=== PATIENT | female | born 1995 | race Caucasian/White ===

== ENCOUNTER 2017-01-30 19:28 | Emergency (ER) | payer BC, OTHER ==
[2017-01-30 19:46] VITALS: O2SAT 98
--- NOTE | 2017-01-30 19:57 | RAD ---
EXAM: Three view(s) of the left foot. INDICATION: Pain. COMPARISON: None. FINDINGS: There is a mildly displaced fracture involving the base of the fifth metatarsal. No other fracture is identified. IMPRESSION: Mildly displaced fracture involving the base of the fifth metatarsal. Electronically signed by: Lonnie Samuels MD 01/30/2017 7:56 PM CDT
--- NOTE | 2017-01-30 20:37 | ED.PDOC ---
History of Present Illness - General Chief Complaint: Lower Extremity Injury Stated Complaint: left ankle pain Time Seen by Provider: 01/30/17 19:31 Source: patient Exam Limitations: no limitations - History of Present Illness Initial Comments: the patient is a 22-year-old female presenting to the emergency room secondary to falling and twisting her left foot. She has significant swelling and pain over the lateral mid aspect of the left foot. She is neurovascularly preserved. Tendon function appears to be preserved. No other injuries. Occurred: this evening Pain - Lower Extremity: moderate: Left Foot Method of Injury: fell, twisted Improving Factors: immobilization Worsening Factors: movement Allergies/Adverse Reactions: Allergies NO KNOWN ALLERGY Allergy (Verified 01/30/17 19:46) Home Medications: Ambulatory Orders Iienkfifmhcdy-Aomg-Twmrfyoyzf [Fioricet] 1 ea PO Q8H PRN #21 tab 01/30/17 Mylan 1 each PO DAILY 01/30/17 Review of Systems - Review of Systems Constitutional: States: no symptoms reported EENTM: States: no symptoms reported Respiratory: States: no symptoms reported Cardiology: States: no symptoms reported Gastrointestinal/Abdominal: States: no symptoms reported Genitourinary: States: no symptoms reported Musculoskeletal: States: see HPI Skin: States: no symptoms reported Neurological: States: no symptoms reported Endocrine: States: no symptoms reported All other Systems: No Change from Baseline Past Medical History (General) - Patient Medical History Hx Seizures: No Hx Stroke: No Hx Dementia: No Hx Asthma: No Hx of COPD: No Hx Cardiac Disorders: No Hx Congestive Heart Failure: No Hx Pacemaker: No Hx Hypertension: No Hx Thyroid Disease: No Hx Diabetes: No Hx Gastroesophageal Reflux: No Hx Renal Disease: No Hx Cancer: No Hx of HIV: No Hx Hepatitis C: No Hx MRSA: No Surgical History: no surgical history - Vaccination History Hx Tetanus, Diphtheria Vaccination: Yes Hx Influenza Vaccination: No Hx Pneumococcal Vaccination: No Immunizations Up to Date: Yes - Social History Hx Tobacco Use: No Hx Chewing Tobacco Use: No Hx Alcohol Use: No Hx Substance Use: No Hx Substance Use Treatment: No Hx Depression: No Feels Threatened In Home Enviroment: No Feels Threatened In a Relationship: No Hx Physical Abuse: No Hx Emotional Abuse: No Hx Suspected Abuse: No - Female History Patient is a Female of Child Bearing Age (10 -59 yrs old): Yes Patient : No Family Medical History - Family History Mother Family History: No Known Living Status: Still Living Physical Exam - Physical Exam General Appearance: Alert, Comfortable, No apparent distress Eyes, Ears, Nose, Throat: PERRL/EOMI Neck: full range of motion Cardiovascular/Respiratory: normal peripheral pulses, no respiratory distress Thigh/Hip: normal inspection, non-tender, no evidence of injury, normal ROM Leg: normal inspection, non-tender, no evidence of injury, normal ROM Knee: normal inspection, non-tender, no evidence of injury, normal ROM Ankle: normal inspection, non-tender, no evidence of injury, normal ROM Foot: soft tissue tenderness - see history of present illness, swelling Neuro/Tendon: normal sensation, normal motor functions Mental Status: alert, oriented x 3 Comments: Vital Signs - 24 hr 01/30/17 19:40 Temperature 99.4 F Pulse Rate [ 90 monitor] Respiratory 16 Rate Blood Pressure 142/72 [Left Arm] O2 Sat by Pulse 98 Oximetry Progress - Progress Progress: 01/30/17 20:36 the patient is a 22-year-old female presenting with a minimally displaced fracture at the base of the fifth metatarsal of the left foot. The patient will be placed in a walking boot. She needs to be reevaluated in 10-14 days. Motrin and Tylenol can use for pain. She is also written for Fioricet. Minimal activity due to the fracture. ER warnings were given. Departure - Departure Clinical Impression: Metatarsal fracture Disposition: Discharge to Home or Self Care Condition: Fair Departure Forms: ED Discharge - Pt. Copy, Patient Portal Self Enrollment Instructions: DI for Foot Fracture Referrals: ADOLPH GARCIA DO [Primary Care Provider] - 1-2 Weeks Prescriptions: Ojvolennuddji-Hhlx-Gpguqihpfz [Fioricet] 1 ea PO Q8H PRN #21 tab PRN Reason: Pain Home Medications: Ambulatory Orders Kquslpfuixxfp-Yhby-Upmcwbwysi [Fioricet] 1 ea PO Q8H PRN #21 tab 01/30/17 Mylan 1 each PO DAILY 01/30/17 Additional Instructions: the patient is a 22-year-old female presenting with a minimally displaced fracture at the base of the fifth metatarsal of the left foot. The patient will be placed in a walking boot. She needs to be reevaluated in 10-14 days. Motrin and Tylenol can use for pain. She is also written for Fioricet. Minimal activity due to the fracture. ER warnings were given.
[2017-01-30 21:20] VITALS: BP 129/83; TEMP 98.1
== END 2017-01-30 21:31 | disposition home or self-care (01) ==
LOC: ER 19:28
DX: S92.352A Displaced fracture of fifth metatarsal bone, left foot, initial encounter for closed fracture (principal); W19.XXXA Unspecified fall, initial encounter